=== PATIENT | female | born 2000 | race American Indian/Alaskan Native ===

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

== ENCOUNTER 2019-02-22 16:00 | Emergency (ER) | payer MEDICAID, OTHER ==
[2019-02-22] MEDS ORDERED: TYLENOL PO ONE (16:08)
[2019-02-22] MEDS ORDERED: BICILLIN L-A IM ONE (16:08)
--- NOTE | 2019-02-22 16:08 | Event Note ---
ED Screening Note ED Screening Note: l lower dental pain started before preg now due end Apr DMD could not do anything because of preg on amox but made her feel funny took tylenol last night not taking her vitamin because too large- educated This initial assessment/diagnostic orders/clinical plan/treatment(s) is/are subject to change based on patients health status, clinical progression and re- assessment by fellow clinical providers in the ED. Further treatment and workup at subsequent clinical providers discretion. Patient/guardian urged not to elope from the ED as their condition may be serious if not clinically assessed and managed. Initial orders include: Bicillin IM and tylenol PO then dc
[2019-02-22 16:09] VITALS: BP 113/75
--- NOTE | 2019-02-22 16:19 | Emergency Department Report ---
Abscess Boil HPI - HPI Chief Complaint: Dental/Oral Stated Complaint: TOOTH PAIN Time Seen by Provider: 02/22/19 16:06 Duration: 2 Days Location: Other History: Yes Pain, Yes Previous History, No Fever, No Purulent Drainage, No Numbness, No Foreign Body, No Insect Bite HPI: 18 YO FEMALE COMES TO ER WITH MANDIBULAR LEFT MOLAR PAIN. SHE HAS NOT BEEN TAKING HER MVI. SHE DID SEE DMD WHO SAID THEY COULD DO NOTHING FOR HER TOOTH BECAUSE SHE IS PREG. SHE TOOK TYLENOL YEST FOR THE PAIN. THE PAIN MEDS THEY GAVE HER DONT WORK. SHE WAS GIVEN AMOX AND TOOK 1 PILL AND IT MADE HER FEEL BAD. SHE COMES TO ER TODAY WANTING US TO TAKE TOOTH OUT. ABC INTACT. VSS. NO TRISMUS. TAKING PO. NO FEVER. NO ABSCESS Allergies/Adverse Reactions: Allergies Allergy/AdvReac Type Severity Reaction Status Date / Time No Known Allergies Allergy Verified 02/22/19 16:02 ED Review of Systems ROS: Stated complaint: TOOTH PAIN Other details as noted in HPI Comment: All other systems reviewed and negative ED Past Medical Hx - Past Medical History Previous Medical History?: No Hx Psychiatric Treatment: Yes (Depression) - Surgical History Past Surgical History?: No - Social History Smoking Status: Never Smoker Substance Use Type: None ED Abscess Boil Physical Exam - Exam General: Vital signs noted. No distress. Alert and acting appropriately. ED Course Vital Signs 02/22/19 16:06 Temperature 98.1 F Pulse Rate 79 Respiratory 16 Rate Blood Pressure 113/75 [Left] O2 Sat by Pulse 100 Oximetry Critical care attestation.: If time is entered above; I have spent that time in minutes in the direct care of this critically ill patient, excluding procedure time. ED Medical Decision Making - Medical Decision Making simple dental pain abc intact no trismus no abscess controlling secretions educated on dental care// MVI bicillin IM and tylenol dc home with DMD and obgyn follow up Vital Signs 02/22/19 16:06 Temperature 98.1 F Pulse Rate 79 Respiratory 16 Rate Blood Pressure 113/75 [Left] O2 Sat by Pulse 100 Oximetry ED Disposition Clinical Impression: Pain, dental, Disposition: DC-01 TO HOME OR SELFCARE Is pt being admited?: No Does the pt Need Aspirin: No Condition: Stable Additional Instructions: TAKE YOUR VITAMIN YOU DONT NEED AMOX NOW THAT YOU GOT A SHOT HERE TAKE TYLENOL FOR PAIN FOLLOW UP WITH DMD STAS INFORM YOUR OBGYN OF DENTAL ISSUES Referrals: DREA RAHMAN MD [Primary Care Provider] - 3-5 Days [facility] [Outside] - 3-5 Days [facility] [Outside] - 3-5 Days Time of Disposition: 16:22
== END 2019-02-22 16:54 | disposition home or self-care (01) ==
LOC: ED 16:00
DX: O26.892 Other specified pregnancy related conditions, second trimester (principal); K08.89 Other specified disorders of teeth and supporting structures; O99.342 Other mental disorders complicating pregnancy, second trimester; F32.9 Major depressive disorder, single episode, unspecified; Z3A.27 27 weeks gestation of pregnancy
CPT/HCPCS: 96372; 99282; J0561

== ENCOUNTER 2019-10-01 02:49 | Emergency (ER) | payer SELFPAY ==
[2019-10-01 02:57] VITALS: BP 130/88
== END 2019-10-01 03:25 | disposition left against medical advice (07) ==
LOC: ED 02:49
DX: M79.89 Other specified soft tissue disorders (principal); Z53.21 Procedure and treatment not carried out due to patient leaving prior to being seen by health care provider